=== PATIENT | female | born 1990 | race Caucasian/White ===

== ENCOUNTER 2017-02-03 04:59 | Emergency (ER) | payer OTHER ==
[~2017-02-03] VITALS: Ht 154.9 cm; Wt 70.3 kg
--- NOTE | 2017-02-03 05:24 | ED GI/GU/ABDOMINAL COMPLAINT ---
History of Present Illness General Chief Complaint: General Adult Stated Complaint: DIZZY, VOMITTING PER FRIEND? Source: patient, family Exam Limitations: no limitations Vital Signs & Intake/Output Vital Signs & Intake/Output Vital Signs Date Time Temp Pulse Resp B/P B/P Pulse O2 O2 Flow FiO2 Mean Ox Delivery Rate 02/03 0757 97.5 78 18 120/70 99 Room Air 02/03 0541 100 Room Air Room Air 02/03 0510 95.8 84 19 114/72 100 Room Air Room Air Allergies Coded Allergies: acetaminophen (From TYLENOL) (Severe, THROAT CLOSES 02/03/17) Reconcile Medications No Known Home Medications Triage Note: 26yo FEMALE TO TRIAGE W/CO FEELING DIZZY,WEAK, VOMITING LAST NIGHT. Triage Nurses Notes Reviewed? yes ? N Is pt currently ? No HPI: Patient states that she was at work earlier today and she forgot to bring fooled with her. 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 A short while later she began to not feel well. Patient states that she started to be come nauseous and felt like her vision was off. Patient went home and attempt to lay down. Patient woke up with worsening nausea and now with vomiting. Patient is also having a throbbing frontal headache. The pain is 6 out of 10 and is constant. There are no aggravating or mitigating factors. There is no radiation. Patient denies any diarrhea. Patient is also complaining of a crampy periumbilical abdominal pain. No aggravating or mitigating factors. There is no radiation. She rates the pain at 6 out of 10. (Kofi YORK,Davis Skinner) Past History Travel History Traveled to [place] past 21 day No Medical History Any Pertinent Medical History? none Surgical History Surgical History: hernia repair-umbilical Psychosocial History What is your primary language [place] Tobacco Use: Never used ETOH Use: denies use Illicit Drug Use: denies illicit drug use Family History Hx Contributory? No (Kofi YORK,Davis Skinner) Review of Systems Review of Systems Constitutional: Reports: no symptoms. EENTM: Reports: see HPI, blurred vision. Respiratory: Reports: no symptoms. Cardiovascular: Reports: no symptoms. GI: Reports: see HPI, abdominal pain, nausea, vomiting. Genitourinary: Reports: no symptoms. Musculoskeletal: Reports: no symptoms. Skin: Reports: no symptoms. Neurological/Psychological: Reports: see HPI, headache. Hematologic/Endocrine: Reports: no symptoms. Immunologic/Allergic: Reports: no symptoms. All Other Systems: Reviewed and Negative (Kofi YORK,Davis Skinner) Physical Exam Physical Exam General Appearance: well developed/nourished, alert, awake, anxious, moderate distress Head: atraumatic, normal appearance Eyes: Bilateral: PERRL, EOMI, other (anicteric). Ears, Nose, Throat, Mouth: hearing grossly normal, dry mucosa Neck: normal inspection, supple, full range of motion Respiratory: normal breath sounds, chest non-tender, no respiratory distress, lungs clear Cardiovascular: regular rate/rhythm, normal peripheral pulses Gastrointestinal: normal bowel sounds, soft, no organomegaly, tenderness (llq and periumbilical) Back: normal inspection, normal range of motion, no cva tenderness Extremities: normal range of motion Neurologic/Psych: no motor/sensory deficits, awake, alert, oriented x 3, normal mood/affect Skin: intact, normal color, warm/dry Core Measures ACS in differential dx? No Sepsis Present: No Sepsis Focused Exam Completed? No (Kofi YORK,Davis Skinner) Progress Differential Diagnosis: appendicitis, biliary colic, cholecystitis, ectopic , gastritis, hepatitis, ischemic bowel, inflamm bowel dis, intrauterine , kidney stone, pancreatitis, PUD/GERD Plan of Care: Orders Procedure Date/time Status Add-on Test (ER Only) 02/03 629 Active HUMAN BETA HCG SCREEN 02/03 525 Complete URINE DRUGS OF ABUSE 02/04 520 Complete URINALYSIS 02/04 520 Complete LIPASE 02/04 520 Complete ETHANOL 02/04 520 Complete COMPREHENSIVE METABOLIC PANEL 02/04 520 Complete CBC WITHOUT DIFFERENTIAL 02/04 520 Complete AMYLASE 02/04 520 Complete Laboratory Tests 02/03/17 0658: Urine Opiates Screen < 100.00, Methadone Screen < 40, Barbiturate Screen < 60, Ur Phencyclidine Scrn < 6.00, Amphetamines Screen < 100, U Benzodiazepines Scrn < 85, Urine Cocaine Screen < 50, Urine Cannabis Screen > 80.00 H, Urinalysis LIGHT H, Urine Color YEL, Urine Clarity HAZY H, Urine pH 6.5, Ur Specific [place] 1.020, Urine Protein NEG, Urine Ketones NEG, Urine Nitrite NEG, Urine Bilirubin NEG, Urine Urobilinogen 0.2, Ur Leukocyte Esterase NEG, Ur Microscopic SEDIMENT EXAMINED, Urine RBC 10-15 H, Urine WBC 15-25 H, Ur Epithelial Cells MANY H, Urine Bacteria MANY H, Urine Mucus FEW, Urine Hemoglobin LARGE H, Urine Glucose NEG 02/03/17 0525: Anion Gap 12, Estimated GFR > 60, BUN/Creatinine Ratio 16.7, Glucose 137 H, Calcium 9.5, Total Bilirubin 0.2, AST 35, ALT 43, Alkaline Phosphatase 65, Total Protein 7.1, Albumin 4.2, Globulin 2.9, Albumin/Globulin Ratio 1.4, Amylase 46, Lipase 63, Total Beta HCG NEGATIVE, CBC w Diff NO MAN DIFF REQ, RBC 4.34, MCV 88.5, MCH 29.2, RDW 13.9, MPV 7.8, Gran % 80.8 H, Lymphocytes % 15.3 L, Monocytes % 3.4, Eosinophils % 0.3, Basophils % 0.2, Absolute Granulocytes 7.0 H, Absolute Lymphocytes 1.3, Absolute Monocytes 0.3, Absolute Eosinophils 0, Absolute Basophils 0, PUBS MCHC 33.0, Serum Alcohol < 10.0 Initial ED EKG: none Hand-Off Endorsed To: Ad Rowland MD Endorsed Time: 0700 Pending: labs, other (RE-EVAL) (Kofi YORK,Davis Skinner) Comments: Patient seen and examined. No dysuria, current menses, abd soft, NT. Denies marijuana use. Updated with drug screen results. (Ad Rowland MD) Departure Departure Condition: Stable Departure Forms: Customer Survey General Discharge Information (Davis Kirby MD) Departure Time of Disposition: 810 Disposition: HOME OR SELF CARE Clinical Impression Primary Impression: Upper abdominal pain, unspecified Secondary Impressions: Marijuana intoxication Qualifiers: Complication of substance-induced condition: with perceptual disturbance Qualified Code: F12.922 - Cannabis use, unspecified with intoxication with perceptual disturbance Additional Instructions: Clear liquids for 12-24 hours until better. Prescriptions: Current Visit Scripts Ondansetron (Zofran Odt) 1 TAB SL TID PRN nausea #10 TAB (Ad Rowland MD)
[2017-02-03 05:44] LABS: ABSOLUTE BASOPHIL COUNT 0 /CUMM (0.0-0.2); ABSOLUTE EOSINOPHIL COUNT 0 /CUMM (0.0-0.7); ABSOLUTE LYMPH COUNT 1.3 /CUMM (1.2-3.4); ABSOLUTE MONOCYTE COUNT 0.3 /CUMM (0.10-0.60); BASOPHIL % 0.2 % (0.0-2.0); EOSINOPHIL % 0.3 % (0-5); GRANULOCYTE % 80.8 % (42.2-75.2); HEMATOCRIT 38.4 % (37-47); MEAN CORPUSCULAR HGB 29.2 PG (27.0-31.0); MEAN CORPUSCULAR VOLUME 88.5 FL (81.0-99.0); MEAN PLATELET VOLUME 7.8 FL (7.4-10.4); PLATELET COUNT 344 /CUMM (130-400); RBC DISTRIBUTION WIDTH 13.9 % (11.5-14.5); RED BLOOD CELL CT 4.34 /CUMM (4.20-5.40); WHITE BLOOD CELL COUNT 8.6 /CUMM (4.8-10.8)
[2017-02-03 07:57] VITALS: BP 120/70
[2017-02-03] MEDS ORDERED: ZOFRAN ODT4 M1 SL (08:14)
== END 2017-02-03 08:52 ==
LOC: ERH 04:59
PROVIDERS: Emergency Medicine
DX: R10.10 Upper abdominal pain, unspecified (principal); F12.922 Cannabis use, unspecified with intoxication with perceptual disturbance; R51 Headache
CPT/HCPCS: 80307; 81001; 96361; 96374; 96375; G0480; J1885; J2405; J2550